=== PATIENT | male | born 1970 ===

== ENCOUNTER 2017-03-20 10:15 | Outpatient (CLI) | payer OTHER ==
[~2017-03-20] VITALS: Ht 180.3 cm; Wt 90.7 kg
[~2017-03-20 10:15] MED LIST: NAPROXEN500 MG PO
[2017-03-20] MEDS ORDERED: AYR SALINE NA14.1 GM NASAL (12:02)
[2017-03-20] MEDS ORDERED: ZANTAC300 MG PO (12:03)
[2017-03-20] MEDS ORDERED: ZYRTEC10 MG PO (12:03)
== END 2017-03-20 10:30 | disposition home or self-care (01) ==
LOC: OFIC 805 10:15
DX: J04.0 Acute laryngitis (principal); R49.0 Dysphonia; J31.0 Chronic rhinitis; J34.2 Deviated nasal septum; R04.0 Epistaxis

== ENCOUNTER 2017-03-22 11:00 | Outpatient (CLI) | payer OTHER ==
[~2017-03-22 11:00] MED LIST changes: +AYR SALINE NA14.1 GM NASAL; +ZANTAC300 MG PO; +ZYRTEC10 MG PO
== END 2017-03-22 11:09 | disposition home or self-care (01) ==
LOC: NUCLEAR 11:00
DX: M81.0 Age-related osteoporosis without current pathological fracture (principal); Z13.820 Encounter for screening for osteoporosis

== ENCOUNTER 2018-08-21 13:05 | Outpatient (CLI) | payer OTHER | END 2018-08-21 13:34 | disposition home or self-care (01) | LOC: RAD 501 13:05 | DX: R05 Cough (principal) ==

== ENCOUNTER 2018-09-04 09:56 | Outpatient (CLI) | payer OTHER ==
[~2018-09-04] VITALS: Ht 177.8 cm; Wt 81.6 kg
== END 2018-09-04 10:15 | disposition home or self-care (01) ==
LOC: OFIC 805 09:56
DX: J34.2 Deviated nasal septum (principal); J31.0 Chronic rhinitis; J32.8 Other chronic sinusitis

== ENCOUNTER 2018-09-18 09:20 | Outpatient (CLI) | payer OTHER ==
[~2018-09-18] VITALS: Ht 152.4 cm; Wt 81.6 kg
== END 2018-09-18 09:40 | disposition home or self-care (01) ==
LOC: OFIC 805 09:20
DX: J32.8 Other chronic sinusitis (principal); R09.81 Nasal congestion

== ENCOUNTER 2018-10-13 08:43 | Outpatient (CLI) | payer OTHER | END 2018-10-13 09:00 | disposition home or self-care (01) | LOC: OFIC 805 08:43 | DX: R09.81 Nasal congestion (principal); J32.8 Other chronic sinusitis; R04.0 Epistaxis; J34.2 Deviated nasal septum; J31.0 Chronic rhinitis ==

== ENCOUNTER 2018-11-19 08:03 | Outpatient (CLI) | payer OTHER ==
[~2018-11-19] VITALS: Ht 152.4 cm; Wt 81.6 kg
[2018-11-19] MEDS ORDERED: AMOX-CLAV 875-1 EACH PO (09:00)
[2018-11-19] MEDS ORDERED: MUPIROCIN22 GM TOP (09:04)
== END 2018-11-19 13:48 | disposition home or self-care (01) ==
LOC: OFIC 805 08:03
DX: L03.211 Cellulitis of face (principal); R09.81 Nasal congestion; J32.8 Other chronic sinusitis

== ENCOUNTER 2025-02-24 09:23 | Outpatient (CLI) | payer OTHER ==
[~2025-02-24 09:23] MED LIST changes: +AMOX-CLAV 875-1 EACH PO; +MUPIROCIN22 GM TOP
== END 2025-02-24 09:48 | disposition home or self-care (01) ==
LOC: MRI 09:23
PROVIDERS: ATTEND Psychiatry & Neurology Clinical Neurophysiology
DX: G45.1 Carotid artery syndrome (hemispheric) (principal); R10.84 Generalized abdominal pain
CPT/HCPCS: 70551